=== PATIENT | male | born 1950 | race Caucasian/White ===

== ENCOUNTER 2018-06-18 09:34 | Day surgery (SDC) | payer OTHER ==
[2018-06-18] MEDS ORDERED: GLUCAGON HCL 1 MG VIAL IVP PRN (09:46)
[2018-06-18] MEDS ORDERED: NALOXONE HCL 0.4 MG/ML INJ IVP PRN (09:46)
[2018-06-18] MEDS ORDERED: PROTAMINE SULFATE 50 MG/5 ML VIAL IVP PRN (09:46)
[2018-06-18] MEDS ORDERED: MEPERIDINE 25 MG/ML SYR IVP PRN (09:46)
[2018-06-18] MEDS ORDERED: MIDAZOLAM 2 MG/2 ML VIAL IVP PRN (09:46)
[2018-06-18] MEDS ORDERED: fentaNYL 100 MCG/2 ML INJ IVP PRN (09:46)
[2018-06-18] MEDS ORDERED: ALTEPLASE 2 MG VIAL IVP PRN (09:46)
[2018-06-18] MEDS ORDERED: HEPARIN 10,000 UNIT/10 ML MDV (1,000 UNIT/ML) IVP PRN (09:46)
[2018-06-18] MEDS ORDERED: FLUMAZENIL 0.5 MG/5 ML MDV IVP PRN (09:46)
[2018-06-18] MEDS ORDERED: NS 1,000 ML IV SCH (10:00)
[2018-06-18] MEDS ORDERED: LIDOCAINE 1% 300 MG/30 ML SDV ONE (10:55)
[2018-06-18] MEDS ORDERED: IOPAMIDOL (ISOVUE-300) 100 ML BTL ONE (10:55)
[2018-06-18] MEDS ORDERED: ACETAMINOPHEN 325 MG TAB PO PRN (12:07)
[2018-06-18] MEDS ORDERED: ONDANSETRON 4 MG/2 ML VIAL IVP PRN (12:07)
--- NOTE | 2018-06-18 12:16 | PDGENHP ---
History & Physical Chief Complaint: ESRD History of Present Illness: LUE AVF X 6 YRS. JUST MOVED TO AREA. CONTINUED FOLLOW UP. PATIENT REQUIRED Q3-6 MONTH INTERVENTION AT [facility]. Pertinent Past, Social, Family History: OTHERWSIE NONE-CONTRIBUTARY. Relevant Physical Exam: NICE BRUI THROUGHOUT FISTULA Cardiorespiratory Assessment: RRR, CTA
[2018-06-18 12:18] VITALS: BP 144/58
--- NOTE | 2018-06-18 12:18 | PDPROPOC ---
Sedation Plan of Care Sedation Plan of Care: vital signs stable, mental status noted, patient educated of risks, benefits, alternatives, patient can tolerate sedation ASA Classification: ASA 3 Planned drugs: fentanyl, midazolam Mallampati Score: Class 3 Mallampati Reference Image: Patient passed 3-3-2 rule?: Yes
--- NOTE | 2018-06-18 12:19 | PDRADPN ---
Radiology Procedure Note Date of Procedure: 06/18/18 Radiologist: Sammi Yuen Anesthesia: IV Sedation Pre-op Diagnosis: ESRD Post-op Diagnosis: SAME Indication: NEEDS FOLLOWUP ON LUE AVF Procedure: FISTULOGRAM WITH ANGIOPLASTY Finding(s): CENTRAL STENOSIS RESOLVED WITH [employer] Inf/Abcess present in the surg proc area at time of surgery?: No
== END 2018-06-18 12:40 | disposition home or self-care (01) ==
LOC: FIMAGING 09:34
PROVIDERS: ATTEND Internal Medicine Nephrology
PROC: 05763ZZ Dilation of Left Subclavian Vein, Percutaneous Approach (ICD-10-PCS; principal; 2018-06-18 12:07)
PROC: 057F3ZZ Dilation of Left Cephalic Vein, Percutaneous Approach (ICD-10-PCS; principal; 2018-06-18 12:07)
DX: I77.1 Stricture of artery (principal)
CPT/HCPCS: 36902; 36907; 99152; C1769; C1894; C1725; J1644; J2250; J2310; J3010; Q9967